=== PATIENT | male | born 1950 | race Caucasian/White ===

== ENCOUNTER → 2021-10-11 11:15 | Outpatient (CLI) | payer MEDICARE, SELFPAY ==
[2021-10-11 13:46] LABS: Add Manual Diff / Slide Review NO; Basophils Absolute Auto 0 /uL (0-100); Basophils Percent Auto 0.6 % (0-2); Eosinophils Absolute Auto 300 /uL (0-450); Eosinophils Percent Auto 4.1 % (2-4); Hematocrit 44.2 % (41-53); Hemoglobin 15.3 g/dL (13.5-17.5); Lymphocytes Absolute Auto 1800 /uL (1100-4500); Lymphocytes Percent Auto 23.6 % (25-40); Mean Corpuscular HGB Conc 34.7 % (30-36); Mean Corpuscular Hemoglobin 30.6 PG (26-34); Mean Corpuscular Volume 88.1 fL (80-100); Monocytes Absolute Auto 900 /uL (0-900); Monocytes Percent Auto 11.8 % (3-14); Neutrophils Absolute Auto 4500 /uL (1500-7000); Neutrophils Percent Auto 59.9 % (50-75); Platelet Count 183 X10^3/uL (150-400); Red Blood Cell Count 5.01 X10^6/uL (4.5-5.9); Red Cell Distribution Width 13.8 % (11.6-14.8); White Blood Cell Count 7.6 X10^3/uL (4.5-11.0)
[2021-10-11 13:59] LABS: Hemoglobin A1C% w Est Avg Glu 6.2 % (4.0-6.0)
[2021-10-11 14:03] LABS: BUN Creatinine Ratio 37.5 (6-22); Blood Urea Nitrogen 36 mg/dL (9-20); Calcium 9.8 mg/dL (8.4-10.2); Carbon Dioxide 27 mmol/L (22-32); Chloride 100 mmol/L (98-107); Estimated Glomerular Filt Rate > 60.0 mL/min (>60); Glucose 131 mg/dL (80-110); HEMOLYSIS < 15 (0-50); Potassium 4.1 mmol/L (3.4-5.1); Sodium 137 mmol/L (137-145)
== END ==
PROVIDERS: Referring Provider Orthopaedic Surgery; Visit Provider Orthopaedic Surgery
DX: Z01.818 Encounter for other preprocedural examination (principal); R73.9 Hyperglycemia, unspecified; M25.562 Pain in left knee; Z01.812 Encounter for preprocedural laboratory examination
CPT/HCPCS: 36415; 80048; 83036; 85025; 93005; 93010

== ENCOUNTER → 2021-10-17 11:55 | Outpatient (CLI) | payer MEDICARE, SELFPAY ==
[2021-10-17 12:59] LABS: COVID19 -Nasal RAPID Negative (Negative)
== END ==
PROVIDERS: Visit Provider Physician Assistant
DX: Z20.822 Contact with and (suspected) exposure to COVID-19 (principal)
CPT/HCPCS: 87635; C9803

== ENCOUNTER 2021-10-20 08:04 | Day surgery (SDC) | payer MEDICARE, SELFPAY ==
[2021-10-13 09:54] VITALS: BMI 32.8
[2021-10-20] VITALS (17 sets, daily range): BP systolic 86–143; BP diastolic 44–98; PULSE 69–79; RESP 12–18; TEMP 36.1–37.1; O2SAT 92–97; BMI 32.8
--- NOTE | 2021-10-20 06:44 | DI.RAD.S_ITS ---
PROCEDURE: XR KNEE LT 1TO2V INDICATIONS: postop prosthesis placement TECHNIQUE: 2 view(s) of the knee acquired. COMPARISON: [facility], CR, XR KNEE 4+ VIEWS LEFT, 04/01/2021, 14:38. FINDINGS: Bones: Patient is status post knee joint arthroplasty. Hardware components are in expected positions. Visualized bony structures are intact. Soft tissues: Overlying postoperative changes are noted. IMPRESSION: Recent postsurgical changes detailed above. Dictated by: Porter Peralta M.D. on 10/20/2021 at 15:22 Approved by: Porter Peralta M.D. on 10/20/2021 at 15:23
[2021-10-20] MEDS: ACETAMINOPHEN 325 MG TABLET 975 MG PO (08:29)
[2021-10-20] MEDS: CELECOXIB 200 MG CAPSULE PO (08:30)
[2021-10-20] MEDS: PREGABALIN 75 MG CAPSULE PO (08:31)
[2021-10-20] MEDS: LACTATED RINGERS 1,000 ML 42 ML IV ×2 (08:32→11:34)
--- NOTE | 2021-10-20 09:31 | PM.PREOP ---
Pre-operative Note COVID-19 COVID-19 status: Negative Result date/Date tested (Pos, Neg/Pending): 10/17/21 Interval Note History & Physical reviewed/Exam performed by Physician: Yes Changes to H&P: No
--- NOTE | 2021-10-20 09:41 | PM.OP.1 ---
Operative Date/Time/Diagnoses Date of procedure: 10/20/21 Time of procedure: 12:16 Pre-op diagnosis: Left knee posttraumatic osteoarthritis Post-op diagnosis: same Procedure & Clinicians Procedure: Left total knee replacement Same procedure as scheduled: Yes Indications: The patient has had progressively worsening left knee pain with radiographic changes consistent with arthritis. Non-operative management has failed and the patient has requested total knee replacement. The risks, benefits and alternatives to surgery were discussed with the patient prior to proceeding. Risks discussed included, but were not limited to, failure to relieve pain, stiffness, infection, nerve damage, deep venous thrombosis, pulmonary embolism, stroke, coma, heart attack, permanent paralysis and , as well as the potential need for eventual revision of the prosthetic. Surgeon: Sriram Rubio Resource Director: Kain Rivas Click Yes if Unassisted: No Anesthesia Type: Spinal, Sedation, Peripheral nerve block and Local Operative Notes Findings: Severe lateral osteoarthritic change. 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 Closure Type: primary Specimen(s): none sent Prosthetic devices, grafts, tissues, transplants, or devices: Implants used in this procedure were manufactured by the [employer] ([place]) and [employer] and included the BCS II Journey total knee replacement with a size 9 Oxinium femoral component, size 7 left non porous tibial base plate, a 9 mm cross-linked polyethylene tibial insert and a 38 mm oval Isabelle II patella. Applied: implant(s) Estimated Blood Loss (mL): 50 Blood products transfused: none Tourniquet time (min): 67 Procedure in detail: The patient was seen in the pre-operative area, where the left knee was identified as the operative site and this was marked with my initials. The patient received pre-operative antibiotics, and was taken to the operating room and placed on the operative table in the supine position. After satisfactory anesthesia, a multimedia programmer out was performed. The left leg was encircled with a tourniquet about the proximal thigh, and the leg was prepared from the toes to the tourniquet with ChloroPrep in the usual fashion and draped through sterile drapes. The leg was elevated and exsanguinated with Eschmark bandage and the tourniquet inflated to 250 mmHg pressure. The knee was approached through an approximately 18 cm incision centered over the patella and carried into the knee through a medial parapatellar arthrotomy. Care was taken to try to cross his pre-existing scar at a non acute angle. The anterior osteophytes and soft tissues were removed. Exposure was quite difficult based on the patella baja from his prior Wolfgang procedure. The rotational landmarks of Dekalb's line and the transepicondylar axis were marked on the femur with electrocautery, and intramedullary guide holes for the femur and tibia were created. The distal femoral cut was made in 6 degrees of valgus using the intramedullary guide at the primary cut setting. This was then re-cut at +2 when we sized the femur at a size 9. The proximal tibial cut was then made using the intramedullary guide, taking 7 mm of bone off the less involved medial side. The extension gap was checked and the rotation of the femoral component confirmed with the gap balancing blocks. Testing with the blocks revealed he was still tight in extension, so an additional 2 mm was taken from the femur. The anterior, posterior and chamfer cuts were then made. The posterior osteophytes and soft tissues were then removed. The posterior capsule was injected with part of a mixture of 60 ml 0.25% Marcaine mixed with 20 ml Exparel and 4 mg of morphine for post-operative pain control. The remainder of this mixture was injected into the capsule and subcutaneous tissues during cement curing. The tibia was prepared with the rotation set by an extra medullary guide. Trial tibial and femoral components were then placed and the intercondylar notch cut through the femoral trial. Range of motion was 0-135 degrees, with good stability throughout the range. The patella was then cut to accommodate the patellar prosthetic. There was no need for a lateral release. The trials were then removed, and the femoral hole plugged with a bone plug. The bone was prepared with pulsatile lavage, and dried with a sponge. Cement was applied and the final prosthetics placed. Excess cement was removed during and after cement curing. After confirming there was no extruded cement posteriorly, the final tibial insert was placed. The knee was copiously irrigated and the tourniquet deflated. Hemostasis was obtained. The capsule was closed with interrupted # 2 polyester sutures. The subcutaneous layer was closed with 3-0 Vicryl, and the skin with a running 3-0 V-Lock suture and Dermabond. An Aquacel Ag dressing was applied and the patient was taken to recovery having tolerated the procedure well. Post-operative Condition: stable Disposition: PACU Plan for aftercare: The patient will be maintained on a standard total knee replacement protocol with weight bearing as tolerated. The patient will receive aspirin and sequential compression devices for DVT prophylaxis. The patient will be discharged home when safe for the home environment.
--- NOTE | 2021-10-20 10:12 | PM.PROC.1 ---
Procedures Date/Time Date of procedure: 10/20/21 Time of procedure: 10:07 Nerve Block Time out performed: Yes Local anesthetic used: bupivacaine 0.25% Location of anesthetic used: LEFT Nerve blocks: femoral (adductor canal) Procedure successful: Yes Patient tolerated procedure: well and no complications Complications: none Additional comments: Adductor canal nerve block performed for post-op pain control at surgeon request. Patient was positioned with IV, O2, monitors and rescue meds available. Prepped and timeout performed. Target identified with continuous ultrasound guidance. 20mL of bupivicaine 0.25% was injected perineurally with intermittent aspiration and injection. No blood, no paresthesias, no acute complications. Ultrasound pic attained.
--- NOTE | 2021-10-20 10:13 | SUR.PREOP ---
Block start time [1007] . Monitoring initiated and maintained throughout procedure. Oxygen and medications given per anesthesiologist instructions. Patient remained stable throughout procedure, no adverse reactions noted. Block end time [1008].
[2021-10-20] MEDS: CEFAZOLIN 2 GM/20 ML SYRINGE IV (10:20)
[2021-10-20] MEDS: TRANEXAMIC ACID 1,000 MG VIAL 1000 MG INJ ×2 (10:38→11:46)
--- NOTE | 2021-10-20 10:44 | SUR.OPER ---
Supine on padded OR bed. Pillow under head, arms secured on padded armboards <90 degree abduction. Safety belt across torso. Non-operative leg secured with tape over blanket over lower leg. Operative leg secured in DeMayo/Refugio/Nathe positioner. Foam padded brace at thigh of operative leg.
[2021-10-20] MEDS: BUPIVACAINE LIPOSOME 266 MG/20 ML VIAL INJ (11:00)
[2021-10-20] MEDS: BUPIVACAINE 0.25% (PF) 60 ML, EPINEPHrine 0.3 MG INJ (11:00)
[2021-10-20] MEDS: MORPHINE 4 MG/ML INJ INJ (11:01)
[2021-10-20] MEDS: LACTATED RINGERS 1,000 ML 100 ML IV ×2 (13:27→22:28)
[2021-10-20] MEDS: OXYCODONE IR 5 MG TABLET PO ×2 (14:55→15:39)
[2021-10-20] MEDS: ACETAMINOPHEN 325 MG TABLET 650 MG PO ×2 (14:55→20:42)
[2021-10-20] MEDS: SODIUM CHLORIDE 0.9% 500 ML 999 ML IV (15:25)
--- NOTE | 2021-10-20 16:07 | PT-IP ANOTE ---
Pt was hypotensive in supine. Pt was also cold, clammy, and sweating. Last nursing vitals: 75/50, 54bpm, 97%. Vitals during PT history intake: 79/47, 51bpm, 95%. Pt history was taken, pt education was provided regarding post-op WBAT, exercises, safety. Post-op folder was provided. Further examination was not completed due to hypotensive status.
[2021-10-20] MEDS: IBUPROFEN 400 MG TABLET PO ×2 (17:16→20:42)
[2021-10-20] MEDS: OXYCODONE IR 10 MG TABLET PO ×2 (18:09→22:20)
[2021-10-20] MEDS: ATORVASTATIN 20 MG TABLET 10 MG PO (20:42)
[2021-10-20] MEDS: METFORMIN HCL 500 MG TABLET 2000 MG PO (20:42)
[2021-10-20] MEDS: DOCUSATE 100 MG CAPSULE PO (20:43)
[2021-10-20] MEDS: ASPIRIN EC 81 MG TABLET PO (20:43)
[2021-10-20] MEDS: INSULIN LISPRO 100 UNIT/ML 3ML VIAL SUBCUT (22:24)
[2021-10-21 04:20] VITALS: BP 114/76; PULSE 79; RESP 18; TEMP 36.8; O2SAT 95
[2021-10-21] MEDS: OXYCODONE IR 5 MG TABLET PO ×2 (04:33→10:34)
[2021-10-21] MEDS: IBUPROFEN 400 MG TABLET PO ×2 (04:33→09:26)
[2021-10-21] MEDS: PANTOPRAZOLE DR 20 MG TABLET PO (06:07)
[2021-10-21 07:35] LABS: Hematocrit 36.1 % (41-53); Hemoglobin 12.5 g/dL (13.5-17.5)
[2021-10-21 08:00] VITALS: BP 122/76; PULSE 74; RESP 16; TEMP 36.8; O2SAT 92
--- NOTE | 2021-10-21 08:06 | PM.DS.1 ---
History of Present Illness History of Present Illness Date Patient Seen: 10/21/21 Time Patient Seen: 08:07 Chief complaint: OPB Narrative: The history and physical is contained in the chart previously completed note. Please refer to that note for this information. Discharge Providers Provider Date of admission: October 20, 2021 Discharge Date: 10/21/21 Primary care physician: Doctor Sandra MD Consults: 10/20/21 12:56 Consult to Discharge Planning Routine Comment: Consult to Physical Therapy Evaluate & Treat Comment: Physician Instructions: postop TKA protocol Discharge provider: Sriram Rubio MD Summary Hospital Course Discharge Diagnosis: 1. Left knee posttraumatic osteoarthritis 2. Mild post hemorrhagic anemia Hospital Course: The patient was admitted to the hospital and taken directly to the operating room on October 20, 2021. He underwent a left total knee replacement without complications. Postoperative day 1 he was found to be stable with a mild, anticipated post hemorrhagic anemia. He was stable for discharge. Status at Discharge Cognitive/behavioral status at discharge: oriented Functional status at discharge: uses cane/walker Overall status at discharge: patient is progressing back to baseline Time Spent with Patient Time spent: Less than 30 minutes Exam Vital Signs (past 8 hours): - 10/21/21 04:20 Temperature 98.2 F Pulse Rate 79 Respiratory Rate 18 Blood Pressure 114/76 Pulse Oximetry 95 Oxygen Delivery Method Room Air Oxygen Flow Rate 0 Narrative Exam Narrative: The left knee wound is dressed with no drainage on the bandage. Calf is soft. Light touch and motion are intact in the left lower extremity. Objective Labs Result Diagrams: 10/21/21 07:20 Labs: Laboratory Results - last 24 hr 10/21/21 07:20 Hgb 12.5 L Hct 36.1 L PFSH Medical History (Updated 10/13/21 @ 10:27 by Alba Nolasco RN) Acid reflux ADHD Bleeding ulcer Diabetes (~2016) HLD (hyperlipidemia) HTN (hypertension) Kennedy's neuroma of both feet Osteoarthritis Tinnitus Surgical History (Updated 10/13/21 @ 10:27 by Alba Nolasco RN) History of surgery (~2010) Hx of arthroscopy of left knee Hx of LASIK Hx of left knee surgery Hx of tonsillectomy Social History household members: spouse Smoking Status: Former smoker alcohol intake: current Discharge Assessment & Plan Assessment and Plan Assessment: Stable postoperative day 1 status post left total knee replacement. There is a mild post hemorrhagic anemia that should not require specific treatment. Plan of Treatment: Discharged home with follow-up in 2 weeks. Discharge prescriptions for oxycodone and Vistaril have been called to his pharmacy. He has been instructed in the use of ibuprofen and Tylenol for pain relief and the use of low-dose aspirin for DVT prophylaxis. Discharge Plan Discharge Plan Patient Disposition: Home Discharge orders & Medications Discharge Orders: Discharge (Order); Ordered 10/21/21 Ordered By: Sriram Rubio Prescriptions: New acetaminophen 325 mg Tablet 650 mg PO TID 30 Days Qty: 180 0RF aspirin 81 mg Tablet,Delayed Release (Dr/Ec) 81 mg PO BID 42 Days Qty: 84 0RF hydroxyzine pamoate 25 mg Capsule 25 mg PO Q6HR PRN (Reason: Nausea) Qty: 30 0RF ibuprofen 400 mg Tablet 400 mg PO Q4HR 3 Days 0RF oxycodone 5 mg Tablet 5 mg PO Q4H PRN (Reason: Pain, Moderate (4-6)) Qty: 40 0RF Continued metformin 500 mg Tablet 2,000 mg PO BEDTIME 0RF lisinopril-hydrochlorothiazide 20-12.5 mg Tablet 1 tab PO QPM 0RF lovastatin 10 mg Tablet 10 mg PO QPM 0RF glimepiride 2 mg Tablet 2 mg PO QAM 0RF Rx Instructions: administer with breakfast dextroamphetamine-amphetamine [Adderall XR] 20 mg Capsule,Extended Release 24hr 20 mg PO QAM 0RF omeprazole 20 mg Tablet,Delayed Release (Dr/Ec) 20 mg PO DAILY 0RF Discontinued acetaminophen [Acetaminophen Extra Strength] 500 mg Tablet 500 mg PO DAILY 0RF ibuprofen 200 mg Tablet 600 mg PO DAILY 0RF Follow up/Referrals: Miscellaneous,Doctor, [Primary Care Provider] - Sriram Rubio MD [Physician] - 2 Weeks Diet/Activity/Treatments Diet: Diet as Tolerated and Carb-consistent/Diabetic Activity: You may bear weight as tolerated on your left leg. Cold/Heat Therapy: Apply ice for 15 minutes every hour as needed for pain control to the left knee. Skin/Wound/Dressing Care Report to your healthcare provider any signs of infection, such as:: chills, fever, night sweats, increased pain, unusual drainage and unusual redness Dressing: You may remove the Jos wrap 3 days after surgery and shower normally with the deeper dressing in place. Leave the deeper dressing in place until your postoperative follow-up. If the deeper dressing becomes saturated with either water or blood, please call the office to have it evaluated. Visit Report/Discharge Packet Instructions: DI for Knee Replacement Stand Alone Forms: Surgery Discharge Discharge Data Primary Care Provider: Miscellaneous,Doctor Attending Provider: Sriram Rubio VTE Deep Vein Thrombosis/Pulmonary Embolism Present on Admission: No
--- NOTE | 2021-10-21 09:08 | CM.DANOTE ---
DCP: Case received, EMR reviewed and met with patient. Introduced self and role. Was able to obtain information regarding patient's baseline activity status prior to his surgery. DCP assessment completed with information currently available. Patient is a 70 year old male who admitted yesterday morning to the care of the orthopedic team. PCP: Dr. Patterson at [facility]. Payer: confirmed: [facility]. Patient came to the hospital via private vehicle for a surgical procedure. He had a left total knee replacement. Patient has history of postraumatic osteoarthritis. He has chronic knee pain, and had arthroplasty in 2020. Met with patient in his room. He is alert and oriented. He was in bed sitting up. He has a four wheel walker in the room, he indicated, he does not always use. He resides here in [place] with his spouse, Kimberly. He has been independent at home prior to surgery, and drives. P: Patient has discharge orders for home today. He will be working with P.T. prior to discharge. Alice Alvarado RN/Skilled Labor Discharge Planning/Care Management CM Discharge Assessment Start: 10/21/21 09:06 Freq: Status: Active Protocol: Document 10/21/21 09:07 (Rec: 10/21/21 09:08 [id number]) Discharge Planning Assessment Assigned Clinical Pharmacy Manager Alice Alvarado RN/Skilled Labor Advance Directives? Yes Advance Directives on File No History Provided By Patient,Medical Record Prior Living Arrangements House Household Members spouse Type of transporation used prior to Drives own vehicle admit Independent with ADL's Yes Is patient alert and oriented? Yes Caregiver for Another No DME Already Rented / Owned FWW / Walker Barriers to Discharge No Discharge Plan Home Transportation Arrangement Spouse Referrals Initiated None needed Whiteboard Updated in Patient Room with Yes name and ext. # of Clinical Pharmacy Manager Review Status In Process Next Review Type Continued Stay Review Pre-Anesthesia Assessment Start: 10/13/21 09:54 Freq: Status: Active Protocol: Document 10/13/21 09:54 CAB (Rec: 10/13/21 11:01 CAB [id number]) Pre-Anesthesia Assessment Patient Information Reviewed Via Phone Assessment Assessment Completed With Patient H&P Completed Within 30 Days No: Not identified at time or assess Diagnostic Results BMP/CMP,CBC,EKG Comment Labs/EKG @ [facility] 10/11/21, COVID screen-needs to schedule Primary Care Provider Dalia Seen Specialist in Last 12 Months Yes Specialist Seen Orthopedist Primary Language Chadian Retail Sales Professional Required No Height 5 ft 11 in Weight 235 lb Body Mass Index (BMI) 32.8 Hearing Ability Normal Visual Assist Glasses Dentition Type Teeth, Natural Present,Teeth, Missing Barriers to Learning None Hx Anesthesia Reactions No Hx Family Anesthesia Reaction Yes: Father-never woke up after hip surgery, age 92 Hx Malignant Hyperthermia No Hx Blood Transfusions Yes: r/t bleeding ulcer 2010 Hx Blood Transfusion Reaction No Anesthesia Review Requested No alcohol intake current alcohol intake frequency 0-2 drinks per day Smoking Status Former smoker how long ago did patient quit smoking Quit 20 years ago Substance Use Type marijuana Comment Rare edibles Pain Present Pain Reported Musculoskeletal Symptoms Abnormal Gait,Back Pain, Difficulty Walking,Joint Pain History of Falling (Recent or History of No ) Patient is completely paralyzed or No completely immobile Mental Status Oriented to own ability Is patient on oxygen? No Does patient have RAMACHANDRAN/SOB No Hx Sleep Apnea No Currently Taking a Beta Cris No Can You Climb a Flight of Stairs Without Yes SOB Hx Chest Pain No Hx SOB No Hx Syncope or Dizziness No Anti-Coagulant Therapy No Has a Camp Maintenance Supervisor No Cardiac Testing No Hx Pacemaker/ICD No Pacemaker Rep Required? No Cardiac Clearance Received Not Applicable Diet Type At Home Regular,Ketogenic dysphagia Yes: Occasionally with solids Gastrointestinal Symptoms Reflux Urinary Catheter Present No Hx Urinary Self Catheterization No Diabetes Yes: Does not check blood sugars at home HgbA1C 6.2 Date 10/11/21 Hx Drug Resistant Organism No Presence of External or Internal Medical No Devices Have you had any close contact with No someone diagnosed with COVID-19? Received a COVID vaccine? Yes Received all doses? Yes Marital Status Lives With spouse Prior Living Arrangements House Number of Floors (Floors) Two Floors Support System Spouse Does the Patient Have Assistance After Yes Surgery Patient Discharge Plan Description Return Home Comment Pt not advised on length of stay per surgeon Feels Safe in Current Environment Yes Been Physically Hurt or Threatened By a No Person in Current Environment Do you have thoughts of harming yourself None or others? Are you currently considering suicide? No Do you have a plan to hurt yourself or No Plan others? Do You Have Any Spiritual Beliefs That No May Affect Your HC Choices? Do You Have Any Cultural Practices That No May Affect Your HC Choices? Who Can We Speak to About Patient's Care Family, friends Identifying Code for Release of Patient Declines to issue Information Health Care Proxy/Next of Kin Kimberly () Health Care Proxy Advance Directives? Yes Advance Directives on File No Requested Patient Bring Advanced Yes Directives DOS Power of Site Coordinator Yes Power of Site Coordinator Name Kimberly () Power of Site Coordinator PAC Instructions Diabetes instructions,Durable medical equipment,Medications to take/avoid,Nasal antibiotic ,No ETOH/petroleum product on skin DOS,NPO,Post-op transportation,Pre-surgical wash,Sensory aids,Sturdy shoes /comfortable clothes,Do not bring valuables and remove jewelry
[2021-10-21] MEDS: DOCUSATE 100 MG CAPSULE PO (09:24)
[2021-10-21] MEDS: ACETAMINOPHEN 325 MG TABLET 650 MG PO (09:24)
[2021-10-21] MEDS: GLIMEPIRIDE 2 MG TABLET PO (09:24)
[2021-10-21] MEDS: ASPIRIN EC 81 MG TABLET PO (09:24)
--- NOTE | 2021-10-21 11:35 | PC.NURSE ---
Discharge order received, and patient cleared by physical therapy. Discharge instructions and home care handouts reviewed with patient by charge nurse, he states understanding and has no further questions or concerns at this time. IV dc'd intact. Aquacel with jessy wrap remain in place, CDI. patient has follow up appointment scheduled. Instructed to call surgeons office with questions or concerns, or to seek emergency care for emergency. Patient was escorted out via wheelchair with all his belongings by MOLECULAR PHYSICIST to his to be discharged to home.
== END 2021-10-21 11:38 | disposition home or self-care (01) ==
LOC: OR 08:06 → AC 08:08
PROVIDERS: Referring Provider Orthopaedic Surgery; Visit Provider Orthopaedic Surgery
PROC: 0SRD0JZ Replacement of Left Knee Joint with Synthetic Substitute, Open Approach (ICD-10-PCS; CPT 27447; principal; 2021-10-20 10:00)
DX: M17.32 Unilateral post-traumatic osteoarthritis, left knee (principal); I10 Essential (primary) hypertension; E11.9 Type 2 diabetes mellitus without complications; Z79.84 Long term (current) use of oral hypoglycemic drugs
CPT/HCPCS: 27447; 36415; 64450; 73560; 82962; 85014; 85018; 97110; 97162; C1776; C9290; J0171; J0690; J1815; J2270; J2704

== ENCOUNTER → 2022-10-21 11:15 | Outpatient (CLI) | payer MEDICARE, SELFPAY ==
[2022-05-13 16:23] VITALS: BMI 32.8
[2022-10-21 13:00] LABS: COVID19 -Nasal RAPID Negative (Negative)
== END ==
PROVIDERS: PCP Pediatrics; Visit Provider Surgery
DX: Z01.812 Encounter for preprocedural laboratory examination (principal); Z20.822 Contact with and (suspected) exposure to COVID-19
CPT/HCPCS: 87635; C9803

== ENCOUNTER 2022-10-22 09:16 | Day surgery (SDC) | payer MEDICARE, SELFPAY ==
[2022-05-13 16:23] VITALS: BMI 32.8
[2022-10-22] VITALS (8 sets, daily range): BP systolic 78–133; BP diastolic 54–92; PULSE 53–76; RESP 16–18; TEMP 36.1–36.4; O2SAT 91–100; BMI 32.8
--- NOTE | 2022-10-22 | PATH_ITS ---
[facility] Accession Number: [id number] . 01 Material submitted: . colon - ASCENDING COLON POLYP . 01 Diagnosis: Ascending Colon Polyp: Tubulovillous adenoma. Negative for high-grade dysplasia or malignancy. MRV 10/26/2022 1251 Local . 01 Electronically signed: . Augusto Pacheco MD, PhD, Pathologist NPI- [id number] . 01 Gross description: . The specimen is received in formalin labeled with the patient's name, , and ascending colon polyp, and consists of four irregular soft tissue fragments ranging from 0.3 to 0.7 cm in greatest dimension with the largest fragment inked and bisected. Submitted entirely in cassette A1. ([id number]) /MRV 10/23/2022 1711 Local . 01 Pathologist provided ICD-10: D12.2 . 01 CPT . 929047 Specimen Comment: A courtesy copy of this report has been sent to [phone] Performed at: 01 [facility] [address] [place] [address] [id number] MD Judd Beauchamp MD Phone: [phone]
[2022-10-22] MEDS: LACTATED RINGERS 1,000 ML 84 ML IV (09:56)
--- NOTE | 2022-10-22 10:24 | P.HP_ITS ---
History of Present Illness History of Present Illness Date Patient Seen: 10/22/22 Time Patient Seen: 10:24 Chief complaint: Colonoscopy Narrative: Gregorio is a 71-year-old man who is here for colonoscopy. He had 1 about 10 years ago which he believes was normal. No known family history of colon cancer. Patient History Medical History (Updated 10/22/22 @ 10:24 by Juan Mendoza MD) Acid reflux ADHD Attention deficit disorder Bleeding ulcer COVID-19 (10/03/22) Diabetes (~2017) Diabetes mellitus GERD (gastroesophageal reflux disease) HLD (hyperlipidemia) HTN (hypertension) Hyperlipidemia Hypertension Kennedy's neuroma of both feet Osteoarthritis Tinnitus Surgical History (Updated 10/13/21 @ 10:27 by Alba Nolasco RN) History of surgery (~2010) Hx of arthroscopy of left knee Hx of LASIK Hx of left knee surgery Hx of tonsillectomy Family & Social History Social History: household members spouse Tobacco & Substance use: Smoking Status Former smoker alcohol intake current alcohol intake frequency 0-2 drinks per day Substance Use Type marijuana Meds Home Medications and Allergies Home Medications Medication Instructions Recorded Confirmed Type dextroamphetamine-amphetamine ER 20 mg PO QAM 10/13/21 10/22/22 History 20 mg 24hr capsule,extend release (Adderall XR) glimepiride 2 mg tablet 2 mg PO QAM 10/13/21 10/22/22 History lisinopril 20 1 tab PO QPM 10/13/21 10/22/22 History mg-hydrochlorothiazide 12.5 mg tablet lovastatin 10 mg tablet 10 mg PO QPM 10/13/21 10/22/22 History omeprazole 20 mg tablet,delayed 20 mg PO DAILY 10/13/21 10/22/22 History release acetaminophen 500 mg tablet 500 mg PO Q6H PRN Pain (Scale 06/04/22 10/22/22 H istory (Tylenol Extra Strength) Score 1-3) acyclovir 400 mg tablet 400 mg PO TID PRN Rash 06/04/22 10/22/22 History metformin 500 mg tablet,extended 2,000 mg PO QPM 06/04/22 10/22/22 History release 24 hr naproxen sodium 220 mg capsule 440 mg PO DAILY 06/04/22 10/22/22 History (Aleve) tadalafil 5 mg tablet 5 mg PO DAILY PRN Sexual Activity 06/04/22 10/22/22 History Allergies Allergy/AdvReac Type Severity Reaction Status Date / Time No Known Drug Allergies Allergy Verified 06/04/22 10:04 Exam Vital Signs (past 8 hours): - 10/22/22 09:54 Temperature 97.5 F L Pulse Rate 76 Respiratory Rate 16 Blood Pressure 123/83 Pulse Oximetry 96 Oxygen Delivery Method Room Air Oxygen Delivery Method Room Air Const General: healthy appearing Assessment & Plan Assessment and plan (1) Colon cancer screening: Status: Acute Plan 71-year-old man here for colonoscopy for colon cancer screening. We reviewed the risks and benefits and he would like to proceed. Time Spent With Patient Critical Care time: I spent a total of [] minutes of critical care time on this patient's care today; this time is exclusive of procedural time.
--- NOTE | 2022-10-22 10:29 | SUR.PREOP ---
Pt ready for procedure at 0958, resting in bed with call light. Pt called at 1015 and complained of feeling a little nauseous and not well Pt pale and diaphoretic. Head of bed placed down, cool rag to head. HR 56, O2 sat 90-92%. BP 78/54. IVF opened and elevated for bolus. Pt stated he began to feel better. BP up to 94/[address] Mendoza and Dr Farris to bedside for pt pre-op and pt stated he felt better. BP 108/76 HR 63 and CBG recheck 144. Pt to procedure with Bianka RAMIREZ
--- NOTE | 2022-10-22 11:16 | PM.OP.COLON ---
Operative Date/Time/Diagnoses Date of procedure: 10/22/22 Time of procedure: 11:16 Pre-op diagnosis: Colon cancer screening Post-op diagnosis: same Procedure & Clinicians Study performed: Colonoscopy Same procedure as scheduled: Yes Surgeon: Juan Mendoza Procedure Notes Procedure in detail: Surgeon: Juan Mendoza MD Anesthesia: Dr. Farris Procedure: The patient was brought to the endoscopy suite, placed in left lateral decubitus position. The patient was connected to monitoring devices. A time-out was performed. Sedation was administered. Once the patient was adequately sedated, a digital rectal exam was performed and was normal. The scope was then inserted and advanced to the cecum some difficulty. After repositioning to his back and abdominal pressure we are eventually able to reach the cecum and the appendiceal orifice was identified and photographed. The scope was then slowly withdrawn over greater than 6 minutes. The mucosa was thoroughly inspected. There was a 1 cm polyp in the ascending colon which was removed with a cold snare. Due to its size it had to be divided in half using the snare to be suctioned into the trap. No other polyps were seen The scope was retroflexed in the rectum. No other abnormalities were noted. The scope was straightened and removed. The patient was awakened and brought to recovery. Scope withdrawal time: 12 Sedation time: 35 EBL: 5 mL Findings: 1 cm polyp ascending colon Post-procedure Recommendations: Will call with biopsy results Disposition: PACU
== END 2022-10-22 11:53 | disposition home or self-care (01) ==
PROVIDERS: PCP Family Medicine; Referring Provider Surgery; Visit Provider Surgery
PROC: 0DJD8ZZ Inspection of Lower Intestinal Tract, Via Natural or Artificial Opening Endoscopic (ICD-10-PCS; CPT 45378; principal; 2022-10-22 10:15)
DX: Z12.11 Encounter for screening for malignant neoplasm of colon (principal); D12.2 Benign neoplasm of ascending colon
CPT/HCPCS: 45385; 82962

== ENCOUNTER → 2022-11-20 10:13 | Outpatient (CLI) | payer MEDICARE, SELFPAY ==
[2022-05-13 16:23] VITALS: BMI 32.8
[2022-11-20 10:32] LABS: Hematocrit 45.9 % (41-53); Hemoglobin 15.7 g/dL (13.5-17.5); Mean Corpuscular HGB Conc 34.3 % (30-36); Mean Corpuscular Hemoglobin 30.4 PG (26-34); Mean Corpuscular Volume 88.7 fL (80-100); Platelet Count 173 X10^3/uL (150-400); Red Blood Cell Count 5.18 X10^6/uL (4.5-5.9); Red Cell Distribution Width 14.4 % (11.6-14.8); White Blood Cell Count 7.3 X10^3/uL (4.5-11.0)
[2022-11-20 11:02] LABS: Alanine Aminotransferase 41 IU/L (<50); Albumin 4.4 g/dL (3.5-5.0); Albumin Globulin Ratio 1.4 (1.0-2.8); Alkaline Phosphatase 68 U/L (38-126); Aspartate Aminotransferase 35 IU/L (17-59); BUN Creatinine Ratio 33.3 (6-22); Bilirubin Total 0.7 mg/dL (0.2-1.3); Blood Urea Nitrogen 33 mg/dL (9-20); Calcium 9.7 mg/dL (8.4-10.2); Carbon Dioxide 29 mmol/L (22-32); Chloride 100 mmol/L (98-107); Cholesterol 202 mg/dL (140-199); Estimated Glomerular Filt Rate > 60 mL/min (>60); Globulin 3.2 g/dL (1.7-4.1); Glucose 147 mg/dL (80-110); HDL Cholesterol 39 mg/dL (40-60); HEMOLYSIS < 15 (0-50); LDL Cholesterol Calculated 105 mg/dL (<100); Potassium 4.3 mmol/L (3.4-5.1); Sodium 138 mmol/L (137-145); Total Protein 7.6 g/dL (6.3-8.2); Triglycerides 289 mg/dL (35-150)
[2022-11-20 11:12] LABS: Hemoglobin A1C% w Est Avg Glu 6.7 % (4.0-6.0)
[2022-11-20 11:31] LABS: Prostate Specific Antigen Scrn 0.813 ng/mL (0.1-4.0)
[2022-11-20 17:58] LABS: Microalbumin Urine Random 1.4 mg/dL (0-1.6)
[2022-11-20 17:59] LABS: Creatinine Urine Random 109.7 mg/dL; Microalbumi Creatinin Ratio Ur 12.7 ug/mg CR (<30)
== END ==
PROVIDERS: PCP Family Medicine; Referring Provider Family Medicine; Visit Provider Family Medicine
DX: E11.9 Type 2 diabetes mellitus without complications (principal); I10 Essential (primary) hypertension; Z12.5 Encounter for screening for malignant neoplasm of prostate; E78.5 Hyperlipidemia, unspecified
CPT/HCPCS: 36415; 80053; 80061; 82043; 82570; 83036; 85027; G0103

== ENCOUNTER → 2023-03-16 13:07 | Outpatient (CLI) | payer MEDICARE, SELFPAY ==
[2022-05-13 16:23] VITALS: BMI 32.8
[2023-03-17 05:19] LABS: x Labcorp Estim. Avg Glu (eAG) 146 mg/dL (.); x Labcorp Hemoglobin A1c 6.7 % (4.8-5.6)
== END ==
PROVIDERS: PCP Family Medicine; Referring Provider Family Medicine; Visit Provider Family Medicine
DX: E11.9 Type 2 diabetes mellitus without complications (principal)
CPT/HCPCS: 36415; 83036

== ENCOUNTER → 2023-04-29 11:24 | Outpatient (CLI) | payer MEDICARE, SELFPAY ==
[2022-05-13 16:23] VITALS: BMI 32.8
--- NOTE | 2023-04-29 | DI.MRI.S_ITS ---
PROCEDURE: MR SHOULDER RT WO CON INDICATIONS: RIGHT SHOULDER PAIN TECHNIQUE: Noncontrast oblique coronal T2 fast spin echo with fat saturation, oblique sagittal T1 spin echo and T2 fast spin echo with fat saturation, axial T1 spin echo and T2 fast spin echo with fat saturation through the shoulder. COMPARISON: None. FINDINGS: Image quality: Excellent. Rotator cuff: Low-grade articular and bursal surface partial thickness tear involving distal supraspinatus extending to musculotendinous junction is seen. Distal infraspinatus tendinosis is noted. Low-grade partial-thickness tear involving superior fibers of distal subscapularis is also seen. No full-thickness rotator cuff tendon rupture. Sagittal images demonstrate moderate supraspinatus muscle atrophy. Bones and bursae: No bone marrow contusions or fractures. Moderate acromioclavicular joint osteoarthritic changes are seen with joint space narrowing, subchondral sclerosis and cyst formation and downward osteophyte formation depressing the musculotendinous junction of supraspinatus. Severe glenohumeral joint osteoarthritic changes are noted with near complete loss of joint space, extensive subchondral sclerosis and cystic changes and prominent inferior marginal osteophyte formation. Moderate amount of joint effusion and subacromial subdeltoid bursal fluid is seen. There is a small hypointense signal measures 6 mm in size within subcoracoid bursa and may represent a loose body. Capsule and soft tissues: Global signal abnormality throughout right shoulder labrum is seen suggestive of extensive right shoulder labral tear. The long head of the biceps tendon appears thickened. The rotator interval appears normal, without fibrosis. The coracohumeral ligament is normal in thickness. IMPRESSION: 1. Low-grade articular and bursal surface partial thickness tear involving distal supraspinatus extending to musculotendinous junction. Distal infraspinatus tendinosis. Low-grade partial-thickness tear involving superior fibers of distal subscapularis. No full-thickness rotator cuff tendon rupture. Moderate supraspinatus muscle atrophy. 2. Moderate acromioclavicular joint osteoarthritis and severe glenohumeral joint osteoarthritis. No fracture or dislocation. Moderate amount of joint effusion and subacromial subdeltoid bursal fluid. 6 mm loose body in subcoracoid bursa. 3. Global signal abnormality throughout right shoulder labrum consistent with extensive labral tear. 4. Proximal long head of biceps tendinosis. Dictated by: Napoleon Villafuerte M.D. on 04/29/2023 at 12:38 Approved by: Napoleon Villafuerte M.D. on 04/29/2023 at 12:45
== END ==
PROVIDERS: PCP Family Medicine; Referring Provider Orthopaedic Surgery; Visit Provider Orthopaedic Surgery
DX: M75.111 Incomplete rotator cuff tear or rupture of right shoulder, not specified as traumatic (principal); M19.011 Primary osteoarthritis, right shoulder; M24.811 Other specific joint derangements of right shoulder, not elsewhere classified
CPT/HCPCS: 73221

== ENCOUNTER → 2023-06-02 11:56 | Outpatient (CLI) | payer MEDICARE, SELFPAY ==
[2022-05-13 16:23] VITALS: BMI 32.8
--- NOTE | 2023-06-02 11:57 | DI.CT.S_ITS ---
PROCEDURE: CT UE RT WO CON INDICATIONS: [employer] TECHNIQUE: Noncontrast 1-1.5 mm thick sections acquired from the acromioclavicular joint to the inferior scapula, with coronal and sagittal reformatting. COMPARISON: [facility], MR, MR SHOULDER RT WO CON, 04/29/2023, 11:34. [facility] [place], CR, XR SHOULDER 2+ VIEWS RIGHT, 04/15/2023, 16:41. FINDINGS: Image quality: Excellent. Bones: No acute osseous fracture or dislocation. Full-thickness joint space narrowing is seen at the glenohumeral joint with subchondral sclerosis, subchondral cystic changes, marginal osteophyte formation, and remodeling of the articular surfaces. There is loss of posterior glenoid bone stock with approximately 20 degrees glenoid retroversion relative to the midplane of the scapula at the mid glenoid level. Moderate degenerative changes are seen at the acromioclavicular joint. The included ribs are intact. Degenerative changes are seen in the included spine. Degenerative changes are seen at the right sternoclavicular joint. Soft tissues: Small glenohumeral effusion. Small ossified intra-articular loose bodies are seen along the anterior glenohumeral joint, the largest of which measures approximately 16 mm in maximum dimension. There is no significant rotator cuff muscle atrophy. The tendons, ligaments, articular cartilages, and labrum are not well evaluated on standard CT. The musculature surrounding the shoulder is otherwise normal in bulk. Two small adjacent nodules are seen in the posterior right lower lobe, the larger of which measures 5 mm in average diameter. IMPRESSION: 1. Severe glenohumeral osteoarthrosis as described in the body of the report. There is approximately 20 degrees glenoid retroversion relative to the midplane of the scapula at the mid glenoid level. 2. Small glenohumeral effusion with a 16 mm ossified loose body anteriorly. 3. Moderate acromioclavicular joint osteoarthrosis. 4. Small right lower lobe pulmonary nodules measuring up to 5 mm an average diameter. Follow-up chest CT could be performed in 12 months if the patient is at high risk for pulmonary malignancy. Approved by: Travis Fontaine M.D. on 06/02/2023 at 15:49
== END ==
PROVIDERS: PCP Family Medicine; Referring Provider Orthopaedic Surgery; Visit Provider Orthopaedic Surgery
DX: M19.011 Primary osteoarthritis, right shoulder (principal); M25.411 Effusion, right shoulder; R91.8 Other nonspecific abnormal finding of lung field
CPT/HCPCS: 73200

== ENCOUNTER → 2023-06-08 15:27 | Outpatient (CLI) | payer OTHER, SELFPAY ==
[2022-05-13 16:23] VITALS: BMI 32.8
[2023-06-08 16:40] LABS: BUN Creatinine Ratio 28.3 (6-22); Blood Urea Nitrogen 34 mg/dL (9-20); Calcium 9.6 mg/dL (8.4-10.2); Carbon Dioxide 30 mmol/L (22-32); Chloride 102 mmol/L (98-107); Estimated Glomerular Filt Rate > 60 mL/min (>60); Glucose 95 mg/dL (80-110); HEMOLYSIS < 15 (0-50); Sodium 139 mmol/L (137-145)
[2023-06-10 05:52] LABS: Labcorp Hemoglobin (Hb) A1c 6.1 % (4.8-5.6)
== END ==
PROVIDERS: PCP Family Medicine; Referring Provider Podiatrist; Visit Provider Podiatrist
DX: Z01.818 Encounter for other preprocedural examination (principal); R73.9 Hyperglycemia, unspecified; Z01.812 Encounter for preprocedural laboratory examination; I82.409 Acute embolism and thrombosis of unspecified deep veins of unspecified lower extremity
CPT/HCPCS: 36415; 80048; 83036; 93005; 93010

== ENCOUNTER 2023-06-16 06:35 | Day surgery (SDC) | payer OTHER, SELFPAY ==
[2022-05-13 16:23] VITALS: BMI 32.8
[2023-06-09 12:14] VITALS: BMI 34.0
--- NOTE | 2023-06-16 | PATH_ITS ---
[facility] Accession Number: [id number] No. of containers..01 Tissue . 01 Material submitted: . INTERSPACE - RIGHT SECOND INTERSPACE NEUROMA . 01 Diagnosis: Right Second Interspace, Excisions: Consistent with fragments of neuroma. [facility] [place] 06/28/2023 1453 Local . 01 Electronically signed: . Dino Ingram MD, Dermatopathologist NPI- [id number] . 01 Gross description: . Received in formalin, labeled with the patient's name and right second interspace neuroma are five ragged, vaguely cylindrical fragments of white-yellow tissue ranging from 0.5 to 1.2 cm. All are inked black and submitted entirely, to be cut at embedding, in cassette A1. ([id number]) /V 06/23/2023 1720 Local . 01 Pathologist provided ICD-10: G57.63 . 01 CPT . 140099 Specimen Comment: A courtesy copy of this report has been sent to [phone] Performed at: 01 [facility] [address] [place] [address], [place], [place] [id number] MD Judd Beauchamp MD Phone: [phone]
[2023-06-16 06:58] VITALS: BP 120/79; PULSE 97; RESP 18; TEMP 36; O2SAT 96; BMI 30.7
[2023-06-16] MEDS: LACTATED RINGERS 1,000 ML 42 ML IV (07:14)
--- NOTE | 2023-06-16 07:27 | PM.PREOP ---
Pre-operative Note Interval Note History & Physical reviewed/Exam performed by Physician: Yes Changes to H&P: No
--- NOTE | 2023-06-16 07:28 | PM.OP.1 ---
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 Conservative measures have failed to alleviate his symptoms and he wished to have surgical intervention at this time. We have spoken of the risks and potential complications as well as expected outcomes of the procedure. Alternatives have also been reviewed. Consent is reviewed and signed and there is no contraindication to the procedure at this time. Surgeon: Arabella Gabriel Click Yes if Unassisted: Yes Anesthesia Type: General Operative Notes Closure Type: primary Specimen(s): other (Suspected nerve tissue right 2nd interspace of foot sent to pathology for identification) Estimated Blood Loss (mL): 5 Tourniquet time (min): 26 Procedure in detail: The patient was brought to the operating room and placed on the operating table in the supine position. The tourniquet was placed about the right ankle. Well padded and appropriately aligned. After induction of general anesthesia the right foot and ankle were prepped and draped in the usual aseptic manner. The tourniquet was inflated. After check of anesthesia, an incision was made over the dorsal 2nd interspace of the right foot. The incision was deepened through subcutaneous tissues, being careful to identify and retract all vital neural and vascular structures. All bleeders were cauterized and ligated as necessary. The deep transverse intermetatarsal ligament was cleanly resected and this allowed visualization of the underlying interspace. After being careful to identify the contents of the interspace, I was able to note the white shiny tissue of the nerve. It was minorly enlarged within the interspace. The nerve was cleanly resected at its most proximal aspect allowing it to retract into the musculature and the 2 distal locations as it fed into the digits, there was a little extra portion and a small portion of the collateral that I also resected and sent to identify to pathology care was taken to not resect tendinous or vascular structures. The area was irrigated with copious amounts of normal sterile saline. The specimen was passed from the table and sent to pathology for identification. The interspace was verified to show no additional nerve tissue. The tourniquet was deflated, a prompt hyperemic response was seen to the foot. Subcutaneous closure performed using 4-0 Vicryl and skin closure performed using 4-0 nylon. The area was dressed with a lightly compressive sterile dressing including Adaptic, 4x4s, Kerlix, and Coban. His foot and ankle were placed in stockinette he was and transferred to the PACU with vital signs stable and vascular status intact. His postop shoe will be placed in the operating holding area following the procedure as his was bringing it to us. Complications: none Post-operative Condition: stable Disposition: PACU Plan for aftercare: Following a period of postoperative monitoring, the patient will be discharged to home on written and oral postoperative instructions including keeping the dressing dry and intact, no greater than 50% weight to the surgical foot, icing behind the knee periodically as directed and elevating the foot when seated at home. DVT prevention techniques have been reviewed. For the 1st postoperative visit the dressing will be changed and close to the 2 1/2 -3rd postoperative week we will likely remove the sutures.
[2023-06-16] MEDS: CEFAZOLIN 2 GM/100 ML PREMIX 100 ML IV (07:50)
--- NOTE | 2023-06-16 08:01 | SUR.OPER ---
Supine on padded OR bed, head on pillow, arms secured on padded arm boards at <90 degrees abduction, legs uncrossed, safety belt at thigh, tape over blanket over lower legs.
[2023-06-16] MEDS: BUPIVACAINE 0.5% (PF) 30 ML VIAL INJ (08:07)
[2023-06-16 08:48] VITALS: BP 116/84; PULSE 90; RESP 18; TEMP 36.2; O2SAT 95
[2023-06-16 08:53] VITALS: BP 117/77; PULSE 90; RESP 12; O2SAT 95
[2023-06-16 08:58] VITALS: BP 114/77; PULSE 88; RESP 12; O2SAT 96
[2023-06-16 09:12] VITALS: BP 111/79; PULSE 90; RESP 16; TEMP 36.5; O2SAT 97
[2023-06-16 09:25] VITALS: BP 112/77; PULSE 83; RESP 17; TEMP 35.6; O2SAT 94
== END 2023-06-16 09:45 | disposition home or self-care (01) ==
PROVIDERS: PCP Family Medicine; Referring Provider Podiatrist; Visit Provider Podiatrist
PROC: (CPT 64782; principal; 2023-06-16 07:45)
DX: G57.81 Other specified mononeuropathies of right lower limb (principal)
CPT/HCPCS: 28080; J0690; J3010

== ENCOUNTER → 2023-09-14 15:45 | Outpatient (CLI) | payer OTHER, SELFPAY ==
[2022-05-13 16:23] VITALS: BMI 32.8
[2023-09-14 17:48] LABS: Add Manual Diff / Slide Review NO; Basophils Absolute Auto 100 /uL (0-100); Basophils Percent Auto 0.8 % (0-2); Eosinophils Absolute Auto 300 /uL (0-450); Eosinophils Percent Auto 5.2 % (2-4); Hematocrit 43.3 % (41-53); Hemoglobin 15.1 g/dL (13.5-17.5); Lymphocytes Absolute Auto 1800 /uL (1100-4500); Lymphocytes Percent Auto 27.5 % (25-40); Mean Corpuscular HGB Conc 34.8 % (30-36); Mean Corpuscular Hemoglobin 31.4 PG (26-34); Mean Corpuscular Volume 90.2 fL (80-100); Monocytes Absolute Auto 700 /uL (0-900); Monocytes Percent Auto 10.4 % (3-14); Neutrophils Absolute Auto 3700 /uL (1500-7000); Neutrophils Percent Auto 56.1 % (50-75); Platelet Count 183 X10^3/uL (150-400); Red Cell Distribution Width 13.3 % (11.6-14.8); White Blood Cell Count 6.6 X10^3/uL (4.5-11.0)
[2023-09-14 18:02] LABS: BUN Creatinine Ratio 37.8 (6-22); Blood Urea Nitrogen 42 mg/dL (9-20); Calcium 9.8 mg/dL (8.4-10.2); Carbon Dioxide 26 mmol/L (22-32); Chloride 102 mmol/L (98-107); Estimated Glomerular Filt Rate > 60 mL/min (>60); Glucose 113 mg/dL (80-110); HEMOLYSIS < 15 (0-50); Potassium 4.4 mmol/L (3.4-5.1); Sodium 136 mmol/L (137-145)
== END ==
PROVIDERS: PCP Family Medicine; Referring Provider Orthopaedic Surgery; Visit Provider Orthopaedic Surgery
DX: Z01.818 Encounter for other preprocedural examination (principal); Z01.812 Encounter for preprocedural laboratory examination
CPT/HCPCS: 36415; 80048; 85025; 93005

== ENCOUNTER 2023-09-22 10:15 | Inpatient (IN) | payer OTHER, SELFPAY ==
[2022-05-13 16:23] VITALS: BMI 32.8
[2023-09-15 09:25] VITALS: BMI 30.4
[2023-09-22] VITALS (7 sets, daily range): BP systolic 122–150; BP diastolic 81–99; PULSE 78–87; RESP 11–16; TEMP 36.4–37; O2SAT 93–97; BMI 30.4
--- NOTE | 2023-09-22 06:00 | DI.RAD.S_ITS ---
PROCEDURE: XR SHOULDER RT MIN 2V INDICATIONS: RTSA TECHNIQUE: 1 view of the shoulder were acquired. COMPARISON: None. FINDINGS: Bones: No fractures or dislocations. Reverse right shoulder arthroplasty. The hardware appears intact without surrounding fracture or lucency. No suspicious bony lesions. Visualized ribs appear intact. Soft tissues: Overlying soft tissue postsurgical changes are present. IMPRESSION: Expected postoperative appearance of reverse right shoulder arthroplasty. Dictated by: Anurag Ruiz M.D. on 09/22/2023 at 14:12 Approved by: Anurag Ruiz M.D. on 09/22/2023 at 14:12
[2023-09-22] MEDS: ACETAMINOPHEN 325 MG TABLET 975 MG PO (10:50)
[2023-09-22] MEDS: LACTATED RINGERS 1,000 ML 42 ML IV (10:50)
--- NOTE | 2023-09-22 11:18 | PM.PREOP ---
Pre-operative Note Interval Note History & Physical reviewed/Exam performed by Physician: Yes Changes to H&P: No
--- NOTE | 2023-09-22 11:27 | SUR.PREOP ---
Time out 1110. Block start time 1111 . Monitoring initiated and maintained throughout procedure. Oxygen and medications given by anesthesiologist instructions. Patient remained stable throughout procedure, no adverse reactions noted. Block end time 1120.
--- NOTE | 2023-09-22 11:28 | SUR.PREOP ---
pt with +1 pitting edema to right martinez and +2 pitting edema to left martinez. Pt states left leg is from knee surgery x3. Informed Ria BYNRES and Dr Frias of edema who both visualized. Pt with lungs clear. No change in baseline weight. Education with patient regarding watching shins and to follow up with PCP if any changes noted.
[2023-09-22] MEDS: CEFAZOLIN 2 GM/100 ML PREMIX 100 ML IV (11:45)
[2023-09-22] MEDS: TRANEXAMIC ACID 1,000 MG VIAL 1000 MG INJ (11:50)
--- NOTE | 2023-09-22 12:07 | SUR.OPER ---
Beach chair with Maquet shoulder positioner. Lower body on padded OR bed. Head in foam padded head cradle, secured with straps. Non-operative arm secured <90 degrees abduction on padded arm board. Pillow under knees. Safety belt at thigh. Cloth tape over blanket over lower legs.
--- NOTE | 2023-09-22 13:36 | P.OP_ITS ---
Operative Date/Time/Diagnoses Date of procedure: 09/22/23 Time of procedure: 13:36 Pre-op diagnosis: Right glenohumeral arthritis Post-op diagnosis: same Procedure & Clinicians Procedure: Right reverse total shoulder arthroplasty Same procedure as scheduled: Yes Indications: Indications: This is a 72-year-old male who has glenohumeral arthritis with deficient rotator cuff and glenoid retroversion. Symptoms have been present for years, insidious onset. Patient has failed conservative therapy including injections, physical therapy, anti-inflammatories and activity modification. After extensive discussion in clinic, they wished to go forward with surgery. Risks and benefits were described including the risk of infection, bleeding, damage to internal structures including nerves. We also discussed the risk of failure of surgery and the need for revision surgery as well as the risk of anesthesia. The patient expressed understanding with these risks and wished to go forward with surgery. Surgeon: Jorge Luis Frias Click Yes if Unassisted: Yes Anesthesia Type: General Operative Notes Findings: Findings: Osteoarthritis of the glenoid and humeral head with 22? of retroversion as noted on preoperative imaging and under direct visualization Closure Type: primary Specimen(s): none sent Prosthetic devices, grafts, tissues, transplants, or devices: Tornier implants Base plate: 29 mm, full wedge Glenosphere: 39 mm Stem: Perform size 3 Poly: +0 concentric Estimated Blood Loss (mL): 50 Blood products transfused: none Procedure in detail: Patient was seen in the preoperative holding unit. The correct right shoulder was identified and marked with my initials. Again we discussed the risks and benefits of surgery and they wished to go forward with surgery. The patient was brought back to the operating room and placed supine on the operating table. Smooth endotracheal intubation was performed by anesthesia. All prominences were padded and they were placed into the beach chair position. Intravenous antibiotics were given. The right shoulder was then prepped with the standard sterile preparation and draping. A time-out was then performed in my initials were again identified on the correct shoulder. 1 g of IV tranexamic acid was given. A standard deltopectoral incision was made. Skin flaps were made. The cephalic vein was identified and retracted laterally. This was protected throughout the remainder of the case. Sharp dissection was made along the deltoid, subacromial and subcoracoid space to release adhesions. The conjoined tendon was identified and the axillary nerve was palpated and continuous using the tug test. It was protected throughout the remainder of the case. A brown retractor was placed underneath the deltoid muscle and a darach retractor underneath the conjoint tendon. The anterior circumflex artery and associated veins on the lower border of the subscapularis were identified and tied off using 0-Vicryl. The biceps tendon was identified in the bicipital groove. This was released from its sheath, and taken from its origin on the glenoid and tied into the pectoralis tendon for a solid tenodesis. We then began a subscapularis peel. The subscapularis was tagged with an Ethibond suture. A 360 degree circumferential release of the subscapularis was performed with protection of the axillary nerve. The coracohumeral ligament was released at the base of the coracoid. The coracoacromial ligament was left intact. The shoulder was then dislocated. Osteophytes were removed using combination of rongeur and osteotome. The ro tator cuff was noted to be torn partially at the greater tuberosity. An intramedullary guide was used set at version of 30?. Using an oscillating saw a conservative humeral head cut was made. Impaction reamers were reamed up to a size 3 stem with a built-in angle 135?. A neck protector was placed. Attention was then turned to the glenoid. After retracting the humeral head posteriorly a circumferential release was performed of the capsule with protection of the axillary nerve. The labrum was then released starting at the biceps anchor and going around the rim a small amount of triceps was released from the inferior glenoid. A center guide pin was then placed using the guide, followed by Reamer. After adequate cartilage was removed the center drill hole was drilled and measured. The base plate was then implanted and screwed into place. The superior drill hole was drilled and filled in a nonlocking fashion, followed by the inferior and anterior holes in locking fashion, the posterior hole was also filled. A 39 glenosphere was then selected and screwed into place onto the base plate. Turning back to the humerus, the humeral head was delivered and trialed with a 0 concentric. The arm was taken through range of motion and this was felt to be stable. The trial was then removed and a dilute Betadine wash was then performed with 1 L of sterile saline. Before placing the final implant, drill holes were made in the bicipital groove for the subscapularis repair, and sutures were passed through the drill holes. The final stem was then impacted into the humerus. The shoulder was then reduced and again brought through range of motion and was felt to be stable. The interval was then closed using #2 Ethibond. The subscapularis was then repaired using a modified racking hitch with nice loupes. The deltopectoral interval was then closed with #2 Ethibond. The skin was closed with 2-0 PDS and cristina followed by Aquacel dressing. Patient was awoken from anesthesia and brought back to the postoperative recovery unit without issue. They were placed into a sling. Complications: none Post-operative Condition: stable Disposition: PACU Plan for aftercare: Postoperative instructions: Sling to remain on for 6 weeks. No external rotation past neutral for 6 weeks. Okay for him to come off her shower. Okay to shower over the Aquacel dressing. If any water gets underneath the dressing, remove the dressing. First postoperative visit in 2 weeks.
[2023-09-22] MEDS: OXYCODONE IR 5 MG TABLET PO (13:57)
--- NOTE | 2023-09-22 14:44 | SUR.PHASEII ---
Spoke with Ria BYRNES and Dr Frias in OR #1 in person. Informed of patient right eye lid with slight drop and slight tight feeling across throat. Lungs clear, no difficulty breathing, A/oX3. Per MD and anesth Pt ok to go home, inform pt of stellate ganglion nerve that is affected. Pt updated. Informed to call 911 for any confusion, slurred speech or if eye lid dose not resolve as nerve block resolves.
== END 2023-09-22 15:25 | disposition home or self-care (01) | DRG 483 ==
PROVIDERS: Admitting Provider Orthopaedic Surgery; PCP Family Medicine; Referring Provider Orthopaedic Surgery; Visit Provider Orthopaedic Surgery
PROC: 0RRJ00Z Replacement of Right Shoulder Joint with Reverse Ball and Socket Synthetic Substitute, Open Approach (ICD-10-PCS; CPT 23472; principal; 2023-09-22 11:45)
DX: M19.011 Primary osteoarthritis, right shoulder (principal); Z87.891 Personal history of nicotine dependence
CPT/HCPCS: 64415; 73030; C1776; J0330; J0690; J1100; J2250; J2405; J2704; J3010

== ENCOUNTER → 2024-06-26 16:31 | Outpatient (CLI) | payer MEDICARE, SELFPAY ==
[2022-05-13 16:23] VITALS: BMI 32.8
[2024-06-26 18:28] LABS: Hemoglobin A1C% w Est Avg Glu 5.7 % (4.0-6.0)
== END ==
LOC: LAB 16:32
PROVIDERS: PCP Family Medicine; Referring Provider Family Medicine; Visit Provider Family Medicine
DX: E11.9 Type 2 diabetes mellitus without complications (principal)
CPT/HCPCS: 36415; 83036

== ENCOUNTER → 2025-03-15 15:31 | Outpatient (CLI) | payer MEDICARE, SELFPAY ==
[2022-05-13 16:23] VITALS: BMI 32.8
[2025-03-15 17:19] LABS: Hematocrit 45.1 % (41-53); Hemoglobin 15.5 g/dL (13.5-17.5); Mean Corpuscular HGB Conc 34.4 % (30-36); Mean Corpuscular Hemoglobin 31.2 PG (26-34); Mean Corpuscular Volume 90.8 fL (80-100); Platelet Count 265 X10^3/uL (150-400); Red Blood Cell Count 4.97 X10^6/uL (4.5-5.9); Red Cell Distribution Width 13.3 % (11.6-14.8); White Blood Cell Count 8.2 X10^3/uL (4.5-11.0)
[2025-03-15 17:30] LABS: Alanine Aminotransferase 28 IU/L (<50); Albumin 4.2 g/dL (3.5-5.0); Albumin Globulin Ratio 1.7 (1.0-2.8); Alkaline Phosphatase 79 U/L (38-126); Aspartate Aminotransferase 30 IU/L (17-59); Bilirubin Total 0.6 mg/dL (0.2-1.3); Blood Urea Nitrogen 32 mg/dL (9-20); Calcium 9.8 mg/dL (8.4-10.2); Carbon Dioxide 28 mmol/L (22-32); Chloride 101 mmol/L (98-107); Cholesterol 159 mg/dL (140-199); Estimated Glomerular Filt Rate > 60 mL/min (>60); Globulin 2.5 g/dL (1.7-4.1); Glucose 114 mg/dL (70-99); HDL Cholesterol 44 mg/dL (40-60); HEMOLYSIS < 15 (0-50); LDL Cholesterol Calculated 90 mg/dL (<100); Potassium 4.4 mmol/L (3.4-5.1); Sodium 136 mmol/L (137-145); Total Protein 6.7 g/dL (6.3-8.2); Triglycerides 123 mg/dL (35-150)
[2025-03-17 03:37] LABS: CRP, High Sensitivity 2.27 mg/L (0.00-3.00)
== END ==
PROVIDERS: PCP Family Medicine; Referring Provider Family Medicine; Visit Provider Family Medicine
DX: E11.8 Type 2 diabetes mellitus with unspecified complications (principal); I10 Essential (primary) hypertension; E78.5 Hyperlipidemia, unspecified
CPT/HCPCS: 36415; 80053; 80061; 83036; 85027; 86140

== ENCOUNTER → 2025-08-06 15:25 | Outpatient (CLI) | payer MEDICARE, SELFPAY ==
[2022-05-13 16:23] VITALS: BMI 32.8
[2025-08-06 15:51] LABS: Hemoglobin A1C% w Est Avg Glu 6.3 % (4.0-6.0)
== END ==
PROVIDERS: PCP Family Medicine; Referring Provider Family Medicine; Visit Provider Family Medicine
DX: E11.8 Type 2 diabetes mellitus with unspecified complications (principal)
CPT/HCPCS: 83036